=== PATIENT | male | born 1970 | race Caucasian/White ===

== ENCOUNTER 2017-06-25 11:58 | Emergency (ER) | payer OTHER ==
[~2017-06-25] VITALS: Ht 172.7 cm; Wt 128.7 kg
[~2017-06-25 11:58] MED LIST: IBUP800T23 PO
[2017-06-25 13:50] VITALS: BP 134/81; PULSE 81; RESP 16; TEMP 98; O2SAT 95
--- NOTE | 2017-06-25 14:07 | PD ---
HPI Chief Complaint: Musculoskeletal Complaint Time Seen by Provider: 14:01 Travel History International Travel<30 days: No Contact w/Intl Traveler<30days: No Traveled to known affect area: No History of Present Illness HPI 46-year-old male with chief complaint of right lateral calf pain times one day. Patient reports while playing softball yesterday he pushed off with the ball of his foot while running to first base which caused pain immediately in the right calf lateral aspect. Patient was concerned was Achilles tendon injury therefore presented to the emergency department for evaluation. Patient has pain in the right lateral aspect of the calf. Worst with weightbearing and dorsiflexion and plantarflexion. Relieved with rest. Symptoms severity moderate. PFSH Past Medical History Medical History: Denies Significant Hx Past Surgical History Other Surgery: Yes (DONATED LEFT KIDNEY) Social History Alcohol Use: No Tobacco Use: No Substance Use: No Allergies-Medications (Allergen,Severity, Reaction): Coded Allergies: Sulfa (Sulfonamide Antibiotics) (Unverified Allergy, Mild, UNKNOWN, ) Reported Meds & Prescriptions Reported Meds & Active Scripts Active No Active Prescriptions or Reported Medications Review of Systems Except as stated in HPI: all other systems reviewed are Neg Physical Exam Narrative GENERAL: Well-nourished, well-developed patient. SKIN: Focused skin assessment warm/dry. HEAD: Normocephalic. EYES: No scleral icterus. No injection or drainage. NECK: Supple, trachea midline. No JVD or lymphadenopathy. CARDIOVASCULAR: Regular rate and rhythm without murmurs, gallops, or rubs. RESPIRATORY: Breath sounds equal bilaterally. No accessory muscle use. GASTROINTESTINAL: Abdomen soft, non-tender, nondistended. MUSCULOSKELETAL: No cyanosis, or edema. Right lower extremity: TTP to posterior lateral aspect of the calf and Achilles tendon. Negative Vernon's test. Negative Homans sign. Patient able to dorsiflex and plantarflex. 2+ distal pulses. Normal sensation. Data Data Last Documented VS Orders Orders Splint Or Brace Apply/Monitor (06/25/17 14:07) [facility] Medical Decision Making Medical Screen Exam Complete: Yes Emergency Medical Condition: Yes Differential Diagnosis calf muscle injury, Achilles tendon injury, ankle sprain Narrative Course 46-year-old male with chief complaint of right lateral calf pain times one day. Patient reports while playing softball yesterday he pushed off with the ball of his foot while running to first base which caused pain immediately in the right calf lateral aspect. Patient was concerned was Achilles tendon injury therefore presented to the emergency department for evaluation. Has a negative Vernon's test. He is able to dorsiflex and plantarflex without difficulty. Extremities neurovascularly intact. He has tenderness over the right lateral lower extremity the soft tissue region. There is no swelling. Patient be treated for a right Muscle injury. Sudarshan wrap for compression and support instructed to elevate and ice. NSAIDs as needed for pain and inflammation. Patient verbalized understanding agrees to plan Diagnosis Primary Impression: Muscle strain of lower extremity Qualified Codes: S86.911A - Strain of unspecified muscle(s) and tendon(s) at lower leg level, right leg, initial encounter Referrals: Primary Care Physician Departure Forms: Tests/Procedures, Work Release Special Instructions: Light duty for one week. Additional Instructions: Review the Sudarshan wrap for support and compression. Ice and elevate the extremity. Take [id number] Motrin [id number] milligrams every 6-8 hours as needed for pain and inflammation. Avoid heavy lifting and strenuous activity for one week. Follow-up with her doctor. Scripts No Active Prescriptions or Reported Meds Disposition: 01 DISCHARGE HOME Condition: Stable Francisca Keating Jun 25, 2017 14:07
== END 2017-06-25 14:18 | disposition home or self-care (01) ==
LOC: PHEFT 11:58
DX: S86.911A Strain of unspecified muscle(s) and tendon(s) at lower leg level, right leg, initial encounter (principal); X50.0XXA Overexertion from strenuous movement or load, initial encounter; Y93.64 Activity, baseball
CPT/HCPCS: 99283